=== PATIENT | female | born 1975 | race African-American/Black ===

== ENCOUNTER 2019-09-28 16:06 | Emergency (ER) | payer MEDICAID, OTHER ==
[~2019-09-28] VITALS: Ht 165.1 cm; Wt 49.0 kg
[2019-09-28 18:04] LABS: EOSINOPHILS % 1.5 % (0.0-5.0); HEMATOCRIT. 29.3 % (36.0-48.0); HEMOGLOBIN. 9.2 g/dL (12.0-16.0); LYMPHOCYTES % 32.6 % (20.0-50.0); MEAN CORPUSCULAR HEMOGLOBIN 23.9 pg (28.0-32.0); MEAN CORPUSCULAR VOLUME 76.3 fL (81.0-99.0); MEAN PLATELET VOLUME 7.9 fl (7.4-10.4); NEUTROPHILS % 55.9 % (40.0-76.0); PLATELET 348 x1000/uL (130-400); RED BLOOD CELL COUNT 3.84 mill/uL (4.2-5.4); RED CELL DISTRIBUTION WIDTH 22.1 % (11.6-14.6)
[2019-09-28 18:13] LABS: CHLORIDE 109 mEq/L (98-107)
[2019-09-28 18:18] LABS: PLATELET ESTIMATE NORMAL
[2019-09-28 18:22] LABS: CREATINE KINASE 60 IU/L (26-192)
[2019-09-28 18:40] LABS: ETHANOL BLOOD 330 mg/dL
[2019-09-28 19:15] VITALS: BP 161/89
== END 2019-09-28 19:16 | disposition home or self-care (01) ==
LOC: ER 16:06
DX: F10.129 Alcohol abuse with intoxication, unspecified (principal); R10.84 Generalized abdominal pain; I11.0 Hypertensive heart disease with heart failure; I50.9 Heart failure, unspecified; Y90.8 Blood alcohol level of 240 mg/100 ml or more
CPT/HCPCS: 36415; 80053; 80320; 81025; 82140; 82550; 85025; 93005; 99284; G0480

== ENCOUNTER 2022-01-30 19:01 | Emergency (ER) | payer MEDICAID ==
[~2022-01-30] VITALS: Ht 157.5 cm; Wt 82.0 kg
[2022-01-30 19:14] VITALS: BP 151/96
[2022-01-30 20:11] LABS: CHLORIDE 105 mEq/L (98-107)
[2022-01-30 20:21] LABS: HCG SCREEN NEGATIVE
[2022-01-30 20:29] LABS: BASOPHILS % 1.2 % (0.0-2.0); EOSINOPHILS % 0.7 % (0.0-5.0); HEMATOCRIT. 31.5 % (36.0-48.0); HEMOGLOBIN. 10.1 g/dL (12.0-16.0); LYMPHOCYTES % 43.8 % (20.0-50.0); MEAN CORPUSCULAR HEMOGLOBIN 23.2 pg (28.0-32.0); MEAN CORPUSCULAR VOLUME 72.5 fL (81.0-99.0); MEAN PLATELET VOLUME 7.6 fl (7.4-10.4); MONOCYTES % 3.5 % (2.0-8.0); NEUTROPHILS % 50.8 % (40.0-76.0); PLATELET 454 x1000/uL (130-400); RED BLOOD CELL COUNT 4.35 mill/uL (4.2-5.4); RED CELL DISTRIBUTION WIDTH 20.3 % (11.6-14.6)
[2022-01-30 20:30] LABS: ETHANOL BLOOD 392 mg/dL
== END 2022-01-30 23:26 | disposition left against medical advice (07) ==
LOC: ER 19:01
DX: Z53.21 Procedure and treatment not carried out due to patient leaving prior to being seen by health care provider (principal); I49.9 Cardiac arrhythmia, unspecified
CPT/HCPCS: 36415; 80053; 80320; 84703; 85025; 93005; 99284; G0480